=== PATIENT | male | born 1960 ===

== ENCOUNTER 2021-05-15 10:00 | Day surgery (SDC) | payer OTHER | END 2021-05-15 16:50 | disposition home or self-care (01) | LOC: AMB-ENDOS 10:00 | PROVIDERS: ATTEND Surgery | DX: D12.2 Benign neoplasm of ascending colon (principal); D12.3 Benign neoplasm of transverse colon; K64.8 Other hemorrhoids; Z20.822 Contact with and (suspected) exposure to COVID-19 ==